=== PATIENT | female | born 1965 | race Caucasian/White ===

== ENCOUNTER → 2017-06-06 | Outpatient (CLI) | payer BC ==
[~2017-06-06] MED LIST: SYNTHROID0.075 MG/T PO
== END ==
LOC: COL.CARD 08:00
DX: R00.2 Palpitations (principal); R07.9 Chest pain, unspecified

== ENCOUNTER 2017-06-27 16:19 | Emergency (ER) | payer BC ==
[~2017-06-27] VITALS: Ht 167.6 cm; Wt 65.9 kg
[2017-06-27 16:24] VITALS: TEMP 97.9
[2017-06-27] MEDS ORDERED: SYNTHROID0.075 MG/T PO (16:28)
[2017-06-27 18:07] VITALS: BP 108/56; PULSE 61
== END 2017-06-27 18:08 | disposition home or self-care (01) ==
LOC: COL.ER 16:19
DX: S20.212A Contusion of left front wall of thorax, initial encounter (principal); E03.9 Hypothyroidism, unspecified; W22.8XXA Striking against or struck by other objects, initial encounter; Y92.830 Public park as the place of occurrence of the external cause
CPT/HCPCS: A9284